=== PATIENT | female | born 1990 | race Caucasian/White ===

== ENCOUNTER 2018-03-29 19:20 | Emergency (ER) | payer MEDICAID ==
[~2018-03-29] VITALS: Ht 165.1 cm; Wt 59.9 kg
[2018-03-29 19:40] VITALS: BP 119/80
--- NOTE | 2018-03-29 20:36 | Emergency Room Report ---
History of Present Illness General Chief Complaint: General Complaint Source: Patient Present Illness HPI 28-year-old female patient presents ER complaining of bilateral big toe numbness and dizziness. Reports dizziness and present for the past 2 days. States it is worse with standing up. denies vertigo or vision loss. Denies phonophobia or photophobia. Denies similar symptoms in the past. Also complaining of bilateral toe numbness for the past several months. Reports history injuries a long time ago prior to onset of toe numbness. Denies history of diabetes. Denies recent injury or trauma. Denies fever, chest pain , shortness of breath. Reports she smokes marijuana, denies drinking or other drug use. Reports previously smoked marijuana last 2 days. Denies vomiting, diarrhea, abdominal pain. Allergies: Coded Allergies: No Known Allergies (Unverified , 03/29/18) Patient History Past Medical History: see triage record Last Menstrual Period: 03/10/2018 Now: No Reviewed Nursing Documentation: PMH: Agreed; PSxH: Agreed Review of Systems All Other Systems: negative except mentioned in HPI Physical Exam Vital Signs Date Time Temp Pulse Resp B/P (MAP) Pulse Ox O2 Delivery O2 Flow Rate FiO2 03/29/18 19:29 98.6 106 17 119/80 96 Room Air 98.6 Sp02 EP Interpretation: reviewed, normal General Appearance: well appearing, no apparent distress, alert, GCS 15, non- toxic Head: normocephalic, atraumatic Eyes: bilateral eye normal inspection, bilateral eye PERRL, bilateral eye EOMI ENT: hearing grossly normal, normal pharynx, no angioedema, normal voice, TMs + canals normal, uvula midline, moist mucus membranes Neck: full range of motion Respiratory: lungs clear, normal breath sounds, no rhonchi, no respiratory distress, no accessory muscle use, no wheezing, speaking full sentences Cardiovascular #1: regular rate, rhythm, no edema Gastrointestinal: non tender, soft, no mass, non-distended, no guarding, no rebound Musculoskeletal: back normal, digits/nails normal, gait/station normal, normal range of motion, non-tender, other - NVI, sensation intact to light touch, cap refill <2 seconds Neurologic: alert, oriented x3, responsive, load blocker III-XII nml as tested, motor strength/tone normal, SLR negative, sensory intact, cerebellar normal, normal gait, speech normal Psychiatric: mood/affect normal Skin: no rash Lymphatic: no adenopathy Medical Decision Making PA Attestation Dr. Savage is my supervising Physician whom patient management has been discussed with. Diagnostic Impression: Primary Impression: Orthostatic dizziness Additional Impression: Numbness of toes ER Course Pt. presents to the ED c/o dizziness and bilateral big toe numbness. Ddx considered but are not limited to fracture, sprain, strain, contusion, dislocation. No erythema, no warmth to touch, no fever, nontoxic appearing, low suspicion for septic joint. Vital signs: are WNL, pt. is afebrile Ordered X-ray and pain medication. ER COURSE Provided with pain medication. Cranial nerves intact as tested, no focal neuro deficits, does not require CT head or labs at this time, low suspicion for intracranial pathology. EKG shows no arrhythmia or ST elevations. Low suspicion for cardiac pathology, does not require cardiac workup at this time. vital show 20mmHG drop in blood pressure from laying down to sitting, likely causing dizziness symptoms. Will provide IV fluids in the ER. Cap refill less than 2 seconds, moist mucous membranes, normal skin turgor, low suspicion for dehydration. instructed patient to drink plenty of fluids. An X-ray of the right foot shows no acute disease per the preliminary reading. An X-ray of the left foot shows no acute disease per the preliminary reading. Likely nerve irritation from chronic injuries, followup with PCP or ortho specialist for further treatment and referral. Patient instructed on RICE method: rest, ice, compression, elevation. Patient instructed on rest, ice and heat. Patient instructed to be WBAT Contact information for orthopedic urgent care provided, follow-up with urgent care if unable to followup with primary care provider and get referral to bibliographic services specialist. Provided with contact information for [facility]. Followup with primary care provider. Discuss referral to ortho/pain management/ PT as needed. Discuss further imaging with MRI/CT as needed. Patient reports feeling better prior to discharge. Instructed to followup with PCP, contact info provided for free and low cost health care clinics. ER precautions given. Patient states she would like to be discharged. Patient resting comfortably in no acute distress, nontoxic appearing, talking normally, ambulating without difficulty. DISCHARGE: -Rx provided for Tylenol for pain symptoms. At this time pt. is stable for d/c to home. Patient is resting comfortably, in no acute distress, nontoxic appearing, talking without difficulty. Will provide printed patient care instructions, and any necessary prescriptions. Patient instructed to follow with primary care provider in 3 - 5 days and to request further follow-up as needed. Care plan and follow up instructions have been discussed with the patient prior to discharge. Take medications as directed. Patient questions asked and answered. Patient reports understanding and agreement to treatment plan. ER precautions given, patient instructed to return to ER immediately for any new or worsening of symptoms. - Please note that this Emergency Department Report was dictated using [employer] pusher technology software, occasionally this can lead to erroneous entry secondary to interpretation by the dictation equipment. EKG Diagnostic Results Rate: normal Rhythm: NSR ST Segments: no acute changes ASA given to the pt in ED: No PA Scribe Text Charlie Rivera PA-C Rhythm Strip Diag. Results EP Interpretation: yes Rate: 76 Rhythm: NSR, no PVC's, no ectopy PA Scribe Text Charlie Rivera PA-C Last Vital Signs Date Time Temp Pulse Resp B/P (MAP) Pulse Ox O2 Delivery O2 Flow Rate FiO2 03/29/18 19:40 98.6 17 119/80 96 Room Air 98.6 03/29/18 19:29 106 Disposition: HOME, SELF-CARE Condition: Stable Scripts Acetaminophen* (TYLENOL EXTRA STRENGTH*) 500 Mg Tablet 500 MG ORAL Q8H PRN for Prn Headache/Temp > 101, #30 TAB 0 Refills Prov: Reese Rivera 03/29/18 Patient Instructions: Dizziness, [id number], Orthostatic Hypotension, Paresthesia, [id number], Turf Toe With Rehab-SportsMed Additional Instructions: Patient instructed to follow up with primary care provider and discuss further referral to orthopedics/physical therapy/pain management as needed. If unable to followup with PCP, followup with orthopedic urgent care in 5-7 days , call to schedule appointment. Discuss further treatment and referral for dizziness symptoms. Stop smoking marijuana. Patient instructed on RICE method: rest, ice, compression, elevation. Patient instructed to WBAT. Take medications as directed. Patient questions asked and answered. ER precautions given, patient instructed to return to ER immediately for any new or worsening of symptoms. [facility] [address] [facility] [address] [facility], [address] [email or web address] Reese Rivera Mar 29, 2018 20:36
[2018-03-29] MEDS ORDERED: TYLENOL EXTRA500 MG ORAL (21:15)
[2018-03-29 22:44] VITALS: BP 101/66
--- NOTE | 2018-03-30 08:56 | Diagnostic Imaging Report ---
Indication: Foot pain Technique: 3 views right foot Comparison: none Findings: No acute fractures. No dislocations. The joint spaces are preserved. There is mild pes cavus Impression: Negative
--- NOTE | 2018-03-30 08:57 | Diagnostic Imaging Report ---
Indication: Foot pain Technique: 3 views left foot Comparison: none Findings: Bony alignment is normal. No acute fractures. No dislocations. Joint spaces are preserved Impression: Negative
--- NOTE | 2018-04-01 16:12 | Cardiology Report ---
APPROVED REPORT EKG Measurement Heart [id number] Sinus rhythm with 1st degree AV block Otherwise normal ECG
== END 2018-03-29 22:45 | disposition home or self-care (01) ==
LOC: EMR 20:07
DX: R42 Dizziness and giddiness (principal); R20.0 Anesthesia of skin; Q66.7 Congenital pes cavus
CPT/HCPCS: 93005; 96360; 99283